=== PATIENT | female | born 1985 | race Two or more races ===

== ENCOUNTER 2021-04-17 03:47 | Emergency (ER) | payer OTHER ==
[~2021-04-17] VITALS: Ht 160 cm; Wt 70.3 kg
--- NOTE | 2021-04-17 04:00 | NUR ---
PT [id number] AND [employer] C/O TAKING METH, WHILE FLEEING FROM THE POLICE AND CRASHING INTO PARKED CARS. PT ALERT AND ORIENTED X3. AMBULATORY BUT BROUGHT IN ON A STRETCHER. PRESENTS WITH NON LABORED BREATHING. PLACED ON MONITOR
[2021-04-17] MEDS ORDERED: LORAZEPAM INJ 2 MG/ML VIAL ONE (04:29)
[2021-04-17] MEDS ORDERED: LORAZEPAM INJ 2 MG/ML VIAL IM ONE (04:30)
--- NOTE | 2021-04-17 04:53 | NUR ---
Patient discharged with law enforcment in stable condition. Written and verbal after care instructions given to officers. Patient verbalizes understanding of instruction.
[2021-04-17 04:54] VITALS: BP 135/98
== END 2021-04-17 04:54 ==
LOC: ER 03:49
DX: F19.10 Other psychoactive substance abuse, uncomplicated (principal); F41.9 Anxiety disorder, unspecified; R94.31 Abnormal electrocardiogram [ECG] [EKG]
CPT/HCPCS: 93005; 96372; 99283; J2060